=== PATIENT | female | born 1985 | race Caucasian/White ===

== ENCOUNTER 2023-10-26 23:38 | Emergency (ER) | payer OTHER, SELFPAY ==
[2023-10-26 23:40] VITALS: BP 119/79
--- NOTE | 2023-10-27 00:21 | ED.GENMED ---
History of Present Illness
General
Chief Complaint: Eye Problems
Source: patient
Exam Limitations: none
Time Seen by Provider: 10/27/23 00:06
Nursing documentation reviewed up to this point in time: agreed with
Travel History
Have you had any contact with someone who has COVID-19?: No
Do you have any symptoms of coronavirus? Fever > 100 degrees, chills, cough, shortness of breath, sore throat, loss of taste or smell, muscle aches, or headache?: No
History of Present Illness
History of Present Illness:
This is a 38-year-old woman who has no significant past medical history save for mild intermittent asthma generally well-controlled.
She has history of myopia wears glasses or contacts. More recently she has been wearing her daily wear contacts without incident but tonight took a nap and forgot to take her contacts out and upon waking noticed mild irritation and a sense of
dryness to her eyes. She was able to take her contacts out without difficulty but upon taking the left contact out she noted moderate irritation of her left eye and admits to rubbing her left eye and is now concerned with generalized swelling of of
her sclera. She admits to mild irritation of left eye but denies itch. No photophobia, no tearing.
Distance visual acuity 20/80 bilateral eyes. This is without corrective lenses.
She follows annually with [facility] navigation operator.
No history of similar episodes in the past and denies prior history of iritis, uveitis, corneal ulcer and denies history of dry eye syndrome.
Past History
Past History
ED Past Medical History: Asthma
ED Past Surgical History: Orthopedic and Other (Breast augmentation)
Social History
Tobacco: Non-smoker
Personal: Single
Living: with family
Employment: Employed
Family History
Family History: Other (Noncontributory)
Phy Exam
Physical Exam
Physical Exam:
GENERAL: Alert , in no apparent distress. 38-year-old female appears her stated age, bright and alert, pleasant, appears in no acute distress. Mother is accompanying.
EYE: pupils equal and reactive, extraocular muscles intact. No photophobia. There is mild global chemosis of the left eye. No tearing, no lid edema nor erythema. Tetracaine instilled in left eye and then examined with fluorescein [place] vides
lamp reveals no evidence of corneal abrasion nor ulceration. Anterior chamber is clear.
NECK: Supple, nontender, no meningismus, no significant adenopathy.
ENT: oral mucosa is moist. No rhinorrhea.
CARDIAC: Regular rate and rhythm. no murmur.
LUNGS: Clear breath sounds bilaterally, no acute respiratory distress, no wheezes/rales/rhonchi
NEUROLOGICAL: Alert and oriented x3, no focal neuro deficits. Gait is lane and steady.
SKIN: Warm and dry, normal color, skin intact. No rash.
MUSCULOSKELETAL: No C/C/E. peripheral pulses are full and equal b/l. No palpable tenderness.
PSYCH: Normal and appropriate interaction.
Course
Orders/Labs/Results
Orders:
Orders
10/27/23 00:14
Tetracaine HCl [Tetracaine 0.5% Ophthalmic Solution] 1 drop .ROUTE .[facility]
10/27/23 01:00
Tobramycin/Dexamethasone [Tobradex Eye Drops] See Dose Instructions OPHTH Q4H
Vital Signs
Initial and Last Documented VS:
Initial Vital Signs
Temp Pulse Resp BP Pulse Ox
98.3 F 57 16 119/79 100
10/26/23 23:40 10/26/23 23:40 10/26/23 23:40 10/26/23 23:40 10/26/23 23:40
Last Documented Vital Signs
Temp Pulse Resp BP Pulse Ox
98.3 F 57 16 119/79 100
10/26/23 23:40 10/26/23 23:40 10/26/23 23:40 10/26/23 23:40 10/26/23 23:40
MDM/Problems Addressed
Differential Diagnosis Includes:
Exam reveals mild global chemosis of left eye but no evidence of corneal abrasion or ulceration nothing to suspect iritis/uveitis.
I suspect chemosis related to rubbing of eye. Will treat with a short course of TobraDex ophthalmic solution.
Recommend she avoid wearing contacts at least over the next 1 to 2 days until chemosis resolves.
Discussed importance of avoidance of rubbing eye, she can gently dab as needed.
Follow-up with ecd[facility] n navigation operator.
*Pulse Oximetry
Patient hypoxic: no
*Critical Care Note
Total Time (30-74mins, 75-104mins- exclusive of procedures): Not Applicable
ED Attending Note
-
Portions of this chart may have been created with voice recognition software.� Occasional wrong word or��sound alike� substitutions may have occurred due to the inherent limitations of voice recognition software.
Discharge Plan
Departure
Patient Disposition: Home (Routine Discharge)
Date of Disposition: 10/27/23
Time of Disposition: 00:32
Patient with high blood pressure during this ER visit?: No
Discharge Problem:
Chemosis of left conjunctiva
Instructions: How to Use Eye Drops
Prescriptions:
New
tobramycin-dexamethasone [TobraDex] 0.3-0.1 % drops,suspension
1 drp ophthalmic (eye) QID 4 Days Qty: 2.5 0RF
Referrals:
UNKNOWN - PT DOES,NOT KNOW [Unknown Provider] -
Interventions
Interventions:
*Risk Screen - Suicide Last Done: 10/26/23 23:40
*General Assessment Last Done: 10/26/23 23:40
*Neglect/Abuse Screening Last Done: 10/26/23 23:40
ED- Fall Risk Assessment Last Done: 10/26/23 23:40
*ED COVID-19 Vaccine History Last Done: 10/26/23 23:40
Discharge Date and Time
Print Language: TANZANIAN
[2023-10-27] MEDS: TOBRADEX EYE DROPS 1 DROP OPHTH (00:29)
== END 2023-10-27 00:40 | disposition home or self-care (01) ==
LOC: EMR 23:38
PROVIDERS: EMERGENCY PHYSICIAN Emergency Medicine; FAMILY PHYSICIAN Family Medicine
DX: H11.422 Conjunctival edema, left eye (principal); J45.909 Unspecified asthma, uncomplicated; J45.20 Mild intermittent asthma, uncomplicated; H52.10 Myopia, unspecified eye
CPT/HCPCS: 99283